=== PATIENT | male | born 1945 | race African-American/Black ===

== ENCOUNTER 2016-04-08 09:36 | Emergency (ER) | payer SELFPAY ==
[~2016-04-08] VITALS: Ht 170.2 cm; Wt 70.3 kg
[~2016-04-08 09:36] MED LIST: ASPIRIN-LOW81 MG PO; CIPRO500 MG PO; HYDROCHLOROTHIA25 MG PO; LISINOPRIL-HCT1 EAC2 PO; LISINOPRIL2.5 MG ORAL; MAGNESIUM CITR296 M1 PO
[2016-04-08 10:00] VITALS: BP 154/85
[2016-04-08] MEDS ORDERED: Lisinopril 10mg tab ORAL ONE (10:15)
--- NOTE | 2016-04-08 10:17 | Emergency Room Report ---
History of Present Illness General Chief Complaint: Chest Pain Source: Patient Present Illness HPI Patient brought in by EMS. Chief complaint of chest discomfort. 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 He has some likely psychiatric disturbances as well. Reports that he rides his bike everywhere, and that while riding his bike he does not have difficulty. Reports one day of chest discomfort possible tightness with productive cough over the last day. Describes chest hurting in all locations without specific radiation. He states that he takes blood pressure medicines but did not take them because he did not go home last night. Denies drug use. Denies history of PE denies history of recent pneumonia or hospitalizations though he does make many references to [facility] which is [place]. Does not know the name of his general Dr. Allergies: Coded Allergies: No Known Allergies (Unverified , 01/24/13) Patient History Past Medical History: see triage record, HTN, CVA/TIA Social History: Reports: alcohol use - uncertain, drug use - uncertain, smoking Immunizations: UTD Reviewed Nursing Documentation: PMH: Agreed Nursing Documentation-PMH Past Medical History: No History, Except For Hx Hypertension: Yes Hx Asthma: Yes Hx Neurological Problems: Yes - psych Hx Cerebrovascular Accident: Yes Review of Systems Respiratory: Reports: cough, sputum Cardiovascular: Reports: chest pain All Other Systems: negative except mentioned in HPI Physical Exam Vital Signs Date Time Temp Pulse Resp B/P Pulse Ox O2 Delivery O2 Flow Rate FiO2 04/08/16 09:36 97.7 80 16 179/92 96 Room Air Sp02 EP Interpretation: reviewed, normal General Appearance: normal inspection, well appearing, no apparent distress, alert Head: atraumatic Eyes: bilateral eye normal inspection ENT: normal ENT inspection, hearing grossly normal, normal voice Neck: normal inspection, full range of motion, supple, no bony tend Respiratory: normal inspection, lungs clear, normal breath sounds, no respiratory distress, no retraction, no wheezing Cardiovascular #1: regular rate, rhythm, no edema Gastrointestinal: normal inspection, normal bowel sounds, non tender, soft, no guarding, no hernia Genitourinary: no CVA tenderness Musculoskeletal: normal inspection, back normal, normal range of motion Neurologic: normal inspection, alert, responsive, speech normal Psychiatric: normal inspection, judgement/insight normal, mood/affect normal Skin: normal inspection, normal color, no rash Medical Decision Making Diagnostic Impression: Primary Impression: Chest pain Additional Impressions: Dyspnea Antisocial behavior Hypertension Cocaine abuse Muscle cramp Muscle cramping ER Course Patient presenting with discomfort in the chest of a spun certain duration. Patient not a very good historian and wants to complaint primarily about political and racial issues more than discuss his medical care. Overall his EKG shows some left axis deviation a right bundle branch pattern but no obvious ST changes. There is occasional PVCs. His lung exam is not very revealing for pneumonia symptoms or wheezing. I think he is somewhat [employer]care this is a poor story and also does have some general illness. Will check blood tests include cardiac markers, chest x-rays, as well as obtain urine urine drug screen and treat his blood pressure with by mouth and IV antihypertensives. Patient did receive nitroglycerin as well as aspirin in route. Patient will be further evaluated with a nebulizer treatment to see if this helps with his chest discomfort. I believe he is somewhat Complicated, witha high the moderate risk patient. at this time will disposition based on further disposition based on initial workup. Patient has been essentially chest pain-free since he presented to the ER, he is fixated on muscle cramps and apparently some political difficulties he's had. Troponin x2 is been negative in the ER, blood pressure has improved blood pressure medicines and he does state that he has muscle cramps in his legs periodically. My direct in to find out how he can followup with primary care he becomes upset. He does have positive cocaine in his urine drug screen, negative alcohol. At this time I W. is having acute coronary syndrome and his blood pressure is best controlled. I am discharging him to followup with primary and to continue state her medications with significant time spent counseling on alcohol and drug abstinence in general. Laboratory Tests Test 04/08/16 10:10 04/08/16 10:50 04/08/16 12:05 White Blood Count 4.3 K/UL (4.8-10.8) L Red Blood Count 4.97 M/UL (4.70-6.10) Hemoglobin 15.5 G/DL (14.2-18.0) Hematocrit 48.3 % (42.0-52.0) Mean Corpuscular Volume 97 FL (80-99) Mean Corpuscular Hemoglobin 31.1 PG (27.0-31.0) H Mean Corpuscular Hemoglobin Concent 32.1 G/DL (32.0-36.0) Red Cell Distribution Width 12.6 % (11.6-14.8) Platelet Count 237 K/UL (150-450) Mean Platelet Volume 9.1 FL (6.5-10.1) Neutrophils (%) (Auto) 55.6 % (45.0-75.0) Lymphocytes (%) (Auto) 33.9 % (20.0-45.0) Monocytes (%) (Auto) 6.0 % (1.0-10.0) Eosinophils (%) (Auto) 2.7 % (0.0-3.0) Basophils (%) (Auto) 1.8 % (0.0-2.0) Prothrombin Time 10.6 SEC (9.30-11.50) Prothromb Time International Ratio 1.0 (0.9-1.1) Activated Partial Thromboplast Time 32 SEC (23-33) Sodium Level 134 mEQ/L (135-145) L Potassium Level 4.0 mEQ/L (3.4-4.9) Chloride Level 92 mEQ/L (98-107) L Carbon Dioxide Level 28 mEQ/L (20-30) Anion Gap 14 (5-15) Blood Urea Nitrogen 10 mg/dL (7-23) Creatinine 0.9 mg/dL (0.7-1.2) Estimat Glomerular Filtration Rate > 60 mL/min (>60) Glucose Level 104 mg/dL (74-106) Calcium Level 9.4 mg/dL (8.6-10.2) Total Bilirubin 0.4 mg/dL (0.0-1.2) Aspartate Amino Transf (AST/SGOT) 101 U/L (5-40) H Alanine Aminotransferase (ALT/SGPT) 105 U/L (3-41) H Alkaline Phosphatase 75 U/L (40-129) Total Creatine Kinase 532 U/L (38-174) H Creatine Kinase MB 22.7 ng/mL (< 6.7) H Creatine Kinase MB Relative Index 4.2 Troponin I < 0.30 ng/mL (<=0.30) < 0.30 ng/mL (<=0.30) Pro-B-Type Natriuretic Peptide 149 pg/mL (0-125) H Total Protein 8.4 g/dL (6.6-8.7) Albumin 4.2 g/dL (3.5-5.2) Globulin 4.2 g/dL Albumin/Globulin Ratio 1.0 (1.0-2.7) Serum Alcohol Pending Urine Opiates Screen Negative (NEGATIVE) Urine Barbiturates Screen Negative (NEGATIVE) Phencyclidine (PCP) Screen Negative (NEGATIVE) Urine Amphetamines Screen Negative (NEGATIVE) Urine Benzodiazepines Screen Negative (NEGATIVE) Urine Cocaine Screen Positive (NEGATIVE) H Urine Marijuana (THC) Screen Negative (NEGATIVE) EKG Diagnostic Results EKG Time: 10:16 EP Interpretation: sinus rhythm, PVCs, LAD, RBBB Rate: normal Rhythm: NSR ST Segments: no acute changes Rhythm Strip Diag. Results Rhythm Strip Time: 10:16 Rate: 82 Rhythm: NSR, no PVC's, no ectopy Chest X-Ray Diagnostic Results Time: 10:16 Reevaluation Time: 13:11 Last Vital Signs Date Time Temp Pulse Resp B/P Pulse Ox O2 Delivery O2 Flow Rate FiO2 04/08/16 09:36 97.7 80 16 179/92 96 Room Air Status: improved Disposition: HOME, SELF-CARE Condition: Stable Mp Dai MD Apr 08, 2016 10:17
[2016-04-08 10:24] LABS: BASOPHILS % (AUTO) 1.8 % (0.0-2.0); EOSINOPHILS % (AUTO) 2.7 % (0.0-3.0); LYMPHOCYTES % (AUTO) 33.9 % (20.0-45.0); MEAN CORPUSCULAR HEMOGLOBIN 31.1 PG (27.0-31.0); MEAN CORPUSCULAR HGB CONC 32.1 G/DL (32.0-36.0); MEAN CORPUSCULAR VOLUME 97 FL (80-99); MEAN PLATELET VOLUME 9.1 FL (6.5-10.1); NEUTROPHILS % (AUTO) 55.6 % (45.0-75.0); PLATELET COUNT 237 K/UL (150-450); RED BLOOD COUNT 4.97 M/UL (4.70-6.10); RED CELL DISTRIBUTION WIDTH 12.6 % (11.6-14.8); WHITE BLOOD COUNT 4.3 K/UL (4.8-10.8)
[2016-04-08 10:29] LABS: PROTHROMBIN TIME 10.6 SEC (9.30-11.50)
[2016-04-08 10:40] LABS: TROPONIN I < 0.30 ng/mL (<=0.30)
[2016-04-08 10:43] LABS: ALANINE AMINOTRANSFERASE 105 U/L (3-41); ASPARTATE AMINO TRANSFERASE 101 U/L (5-40); CALCIUM 9.4 mg/dL (8.6-10.2); CARBON DIOXIDE 28 mEQ/L (20-30); CREATININE 0.9 mg/dL (0.7-1.2); GLOMERULAR FILTRATION RATE > 60 mL/min (>60); TOTAL PROTEIN 8.4 g/dL (6.6-8.7)
[2016-04-08 10:44] LABS: ANION GAP 14 (5-15); CHLORIDE 92 mEQ/L (98-107); HEMOLYSIS 6; SODIUM 134 mEQ/L (135-145)
[2016-04-08] MEDS ORDERED: NS 55 ML IV ONE (10:45)
[2016-04-08] MEDS ORDERED: Solu-MEDROL 125mg Inj IVP ONE (10:45)
[2016-04-08] MEDS ORDERED: cefTRIAXone 1 GM in NS 55 ML IVPB ONE (10:45)
[2016-04-08] MEDS ORDERED: Azithromycin 500 MG in D5W 275 ML IVPB ONE (10:45)
[2016-04-08 10:54] LABS: CKMB 22.7 ng/mL (< 6.7)
[2016-04-08 11:00] VITALS: BP 169/84
[2016-04-08] MEDS ORDERED: Azithromycin Inj IV ONE (11:21)
--- NOTE | 2016-04-08 11:46 | Diagnostic Imaging Report ---
Indication: Shortness of breath Technique: XRAY CHEST 1 V Comparison: 12/03/09 Findings: Cardiac silhouette appears prominent. There is elevation of the left hemidiaphragm. Slight linear and hazy opacities are noted in the lung bases. There is no pneumothorax. Degenerative changes of the spine are seen. Impression: Elevation of the left hemidiaphragm with slight hazy appearance in the lung bases which could represent atelectasis. Infiltrate not excluded and clinical correlation/followup recommended.
[2016-04-08 12:00] VITALS: BP 138/74
[2016-04-08] MEDS ORDERED: Acetaminophen 500mg (ES) tab ORAL ONE (12:45)
[2016-04-08 12:54] LABS: TROPONIN I < 0.30 ng/mL (<=0.30)
[2016-04-08 13:00] VITALS: BP 125/59
[2016-04-08 14:00] VITALS: BP 125/59
[2016-04-08 14:03] VITALS: BP 125/59
--- NOTE | 2016-04-09 18:58 | Cardiology Report ---
APPROVED REPORT EKG Measurement Heart [id number] Sinus rhythm with occasional premature ventricular complexes Left axis deviation Right bundle branch block and LAFB Abnormal ECG
== END 2016-04-08 14:03 | disposition home or self-care (01) ==
LOC: EDBD 09:36 → EMR 10:00
DX: R07.89 Other chest pain (principal); R06.00 Dyspnea, unspecified; I10 Essential (primary) hypertension; F14.10 Cocaine abuse, uncomplicated; Z72.811 Adult antisocial behavior; R25.2 Cramp and spasm; J45.909 Unspecified asthma, uncomplicated; Z86.73 Personal history of transient ischemic attack (TIA), and cerebral infarction without residual deficits
CPT/HCPCS: 36415; 71010; 80053; 80300; 82550; 82553; 83880; 84484; 85025; 85610; 85730; 93005; 96361; 96374; 96375; 99284; G0480; J0360; J0456; J0696; J2930; 80329

== ENCOUNTER 2018-08-26 08:02 | Emergency (ER) | payer MEDICARE, OTHER ==
[~2018-08-26] VITALS: Ht 172.7 cm; Wt 72.6 kg
--- NOTE | 2018-08-26 08:10 | NUR ---
ED Nurse Note: pt brought in to ER by ambulance from [facility] due to abnormal lab. pt is non verbal with trache but follows commnads. pt is bedbound. based on the lab that SNF sent, hg level was 7.9. pt is in gown and quality assurance monitor body. pt is on O2 2L/min via trache. Rt buttock pressure ulcer noted.
--- NOTE | 2018-08-26 08:11 | NUR ---
ED Nurse Note: body contracture noted on Lt side of body. pt unable to straight Lt arm and Lt leg.
--- NOTE | 2018-08-26 08:12 | NUR ---
ED Nurse Note: pt has G-tube in place on medial abdomen.
--- NOTE | 2018-08-26 08:32 | Emergency Room Report ---
History of Present Illness General Chief Complaint: Abnormal Labs Source: Patient Present Illness HPI 72-year-old male presents ED for evaluation. Brought in by EMS from [facility] facility. Noted to have abnormal labs. Recent lab work shows hemoglobin of 7.9. Patient is nonverbal, trach with trach collar. History of CVA. Patient shows no signs of distress upon arrival. No reported nausea or vomiting. No reported blood in stool. No other aggravating or relieving factors. No other associated symptoms Allergies: Coded Allergies: No Known Allergies (Unverified , 01/24/13) Patient History Past Medical History: HTN, asthma, CVA/TIA, psych hx Past Surgical History: none Pertinent Family History: none Social History: Denies: smoking, alcohol use, drug use Immunizations: UTD Reviewed Nursing Documentation: PMH: Agreed; PSxH: Agreed Nursing Documentation-PMH Past Medical History: No History, Except For Hx Hypertension: Yes Hx Asthma: Yes Hx Neurological Problems: Yes - psych Hx Cerebrovascular Accident: Yes Review of Systems All Other Systems: limited Physical Exam Vital Signs Date Time Temp Pulse Resp B/P (MAP) Pulse Ox O2 Delivery O2 Flow Rate FiO2 08/26/18 08:05 98.6 71 21 110/64 (79) 100 Trach Collar 4.0 Sp02 EP Interpretation: reviewed, normal General Appearance: no apparent distress, alert, thin, other - nonverbal Head: normocephalic Eyes: bilateral eye normal inspection, bilateral eye PERRL ENT: normal ENT inspection Neck: tracheotomy Respiratory: chest non-tender, lungs clear, normal breath sounds, speaking full sentences Cardiovascular #1: regular rate, rhythm, no edema Gastrointestinal: normal inspection, other - Gtube Rectal: deferred Genitourinary: no CVA tenderness Musculoskeletal: normal inspection Neurologic: other - nonverbal Psychiatric: other - nonverbal Skin: normal inspection Lymphatic: normal inspection Medical Decision Making Diagnostic Impression: Primary Impression: Abnormal laboratory test result ER Course Hospital Course 72-year-old male presents to ED for evaluation of possible anemia, with possible transfusion Differential diagnoses include: anemia requiring transfusion, microcytic anemia , macrocytic anemia, heavy blood loss Clinical course Patient placed on stretcher. After initial history and physical I ordered labs including CBC and type and screen. Labs-hemoglobin 9.4, no leukocytosis, UA negative. no other electrolyte abnormalities. Family requested CT head CT shows old chronic infarcts, old subdural. Nothing acute Discussed with Dr Giang (covering for Dr Canas); the patient can be safely discharged back to [facility] facility Diagnosis - abnormal lab result Stable and discharged to SNF. Followup with PMD. Return to ED if symptoms recur or worsen Labs Test 08/26/18 08:15 08/26/18 08:30 White Blood Count 9.7 K/UL (4.8-10.8) Red Blood Count 3.15 M/UL (4.70-6.10) Hemoglobin 9.4 G/DL (14.2-18.0) Hematocrit 28.7 % (42.0-52.0) Mean Corpuscular Volume 91 FL (80-99) Mean Corpuscular Hemoglobin 29.9 PG (27.0-31.0) Mean Corpuscular Hemoglobin Concent 32.8 G/DL (32.0-36.0) Red Cell Distribution Width 13.2 % (11.6-14.8) Platelet Count 374 K/UL (150-450) Mean Platelet Volume 7.0 FL (6.5-10.1) Neutrophils (%) (Auto) 70.5 % (45.0-75.0) Lymphocytes (%) (Auto) 12.7 % (20.0-45.0) Monocytes (%) (Auto) 8.9 % (1.0-10.0) Eosinophils (%) (Auto) 7.0 % (0.0-3.0) Basophils (%) (Auto) 0.9 % (0.0-2.0) Prothrombin Time 10.6 SEC (9.30-11.50) Prothromb Time International Ratio 1.0 (0.9-1.1) Activated Partial Thromboplast Time 29 SEC (23-33) Sodium Level 131 MMOL/L (136-145) Potassium Level 3.5 MMOL/L (3.5-5.1) Chloride Level 94 MMOL/L (98-107) Carbon Dioxide Level 34 MMOL/L (21-32) Anion Gap 3 mmol/L (5-15) Blood Urea Nitrogen 13 mg/dL (7-18) Creatinine 0.5 MG/DL (0.55-1.30) Estimat Glomerular Filtration Rate > 60 mL/min (>60) Glucose Level 138 MG/DL (74-106) Lactic Acid Level 1.10 mmol/L (0.4-2.0) Calcium Level 9.1 MG/DL (8.5-10.1) Total Bilirubin 0.3 MG/DL (0.2-1.0) Aspartate Amino Transf (AST/SGOT) 37 U/L (15-37) Alanine Aminotransferase (ALT/SGPT) 60 U/L (12-78) Alkaline Phosphatase 119 U/L (46-116) Pro-B-Type Natriuretic Peptide 715 pg/mL (0-125) Total Protein 7.4 G/DL (6.4-8.2) Albumin 2.7 G/DL (3.4-5.0) Globulin 4.7 g/dL Albumin/Globulin Ratio 0.6 (1.0-2.7) Urine Color Yellow Urine Appearance Clear Urine pH 8 (4.5-8.0) Urine Specific [place] 1.015 (1.005-1.035) Urine Protein Negative (NEGATIVE) Urine Glucose (UA) Negative (NEGATIVE) Urine Ketones Negative (NEGATIVE) Urine Blood Negative (NEGATIVE) Urine Nitrite Negative (NEGATIVE) Urine Bilirubin Negative (NEGATIVE) Urine Urobilinogen 1 MG/DL (0.0-1.0) Urine Leukocyte Esterase Negative (NEGATIVE) EKG Diagnostic Results Rate: normal Rhythm: NSR ST Segments: no acute changes ASA given to the pt in ED: No Rhythm Strip Diag. Results EP Interpretation: yes Rhythm: NSR, no PVC's, no ectopy CT/MRI/US Diagnostic Results CT/MRI/US Diagnostic Results : Imaging Test Ordered: CT Head Impression old subdural. chronic infarcts Last Vital Signs Date Time Temp Pulse Resp B/P (MAP) Pulse Ox O2 Delivery O2 Flow Rate FiO2 08/26/18 08:05 98.6 71 21 110/64 (79) 100 Trach Collar 4.0 Status: improved Disposition: XF SNF Condition: Stable Narciso Barber MD Aug 26, 2018 08:32
[2018-08-26 08:33] LABS: BASOPHILS % (AUTO) 0.9 % (0.0-2.0); HEMATOCRIT 28.7 % (42.0-52.0); HEMOGLOBIN 9.4 G/DL (14.2-18.0); LYMPHOCYTES % (AUTO) 12.7 % (20.0-45.0); MEAN CORPUSCULAR VOLUME 91 FL (80-99); MONOCYTES % (AUTO) 8.9 % (1.0-10.0); NEUTROPHILS % (AUTO) 70.5 % (45.0-75.0); PLATELET COUNT 374 K/UL (150-450); RED BLOOD COUNT 3.15 M/UL (4.70-6.10); RED CELL DISTRIBUTION WIDTH 13.2 % (11.6-14.8); WHITE BLOOD COUNT 9.7 K/UL (4.8-10.8)
[2018-08-26 08:42] VITALS: BP 128/68
[2018-08-26 08:43] LABS: APPEARANCE,URINE CLEAR; BILIRUBIN, URINE NEGATIVE (NEGATIVE); GLUCOSE, URINE (UA) NEGATIVE (NEGATIVE); KETONES,URINE NEGATIVE (NEGATIVE); LEUKOCYTE ESTERASE ,URINE NEGATIVE (NEGATIVE); NITRITE,URINE NEGATIVE (NEGATIVE); PH,URINE 8 (4.5-8.0); PROTEIN,URINE NEGATIVE (NEGATIVE); UROBILINOGEN,URINE 1 MG/DL (0.0-1.0)
[2018-08-26 08:45] LABS: ANION GAP 3 mmol/L (5-15); BLOOD UREA NITROGEN 13 mg/dL (7-18); CALCIUM 9.1 MG/DL (8.5-10.1); CARBON DIOXIDE 34 MMOL/L (21-32); CHLORIDE 94 MMOL/L (98-107); CREATININE 0.5 MG/DL (0.55-1.30); POTASSIUM 3.5 MMOL/L (3.5-5.1); SODIUM 131 MMOL/L (136-145)
[2018-08-26 08:46] LABS: COLOR,URINE YELLOW
[2018-08-26 08:53] LABS: ALANINE AMINOTRANSFERASE 60 U/L (12-78); ALBUMIN 2.7 G/DL (3.4-5.0); ALBUMIN/GLOBULIN RATIO 0.6 (1.0-2.7); ALKALINE PHOSPHATASE 119 U/L (46-116); ASPARTATE AMINO TRANSFERASE 37 U/L (15-37); BILIRUBIN,TOTAL 0.3 MG/DL (0.2-1.0)
--- NOTE | 2018-08-26 08:56 | NUR ---
ED Nurse Note: trache suctioned. yellow with red thick clot was suctioned. pt tolerated well.
--- NOTE | 2018-08-26 09:41 | NUR ---
ED Nurse Note: pt went down for CT scan in stable condition.
--- NOTE | 2018-08-26 09:48 | NUR ---
ED Nurse Note: pt came back from CT scan in stable condition.
--- NOTE | 2018-08-26 10:09 | Diagnostic Imaging Report ---
Indication: Altered mental status Technique: Contiguous 5 mm thick transaxial imaging of the head obtained in a Siemens Sensation [address] scanner. Soft tissue and bone windows generated. Automatic Exposure Control was utilized. Total Dose length Product (DLP): 1418.[address] Dose Index Volume (CTDIvol): 70.38 mGy Comparison: none Findings: Patchy areas of encephalomalacia are noted within the right frontal lobe in 2 locations as well as the left parietal lobe consistent with old infarct. Right frontal low-density subdural collection demonstrated probably an old subdural hematoma or CSF hygroma. There is no mass effect or edema or evidence of acute hemorrhage. There is evidence of a skull fracture the acuity of which is not certain on this study. The fracture is oriented transversely over the vertex of the skull distinct and posterior to the coronal suture. There is also some comminution and irregularity along the right parietal calvarium posterior to the main fracture line. There is no soft tissue swelling. Based on the appearance this is probably an old injury. Please correlate clinically. There is moderate prominence of the ventricles, basal cisterns, and cerebral sulci consistent with atrophy. Extensive white matter hypoattenuation is noted throughout the brain consistent with chronic small vessel disease. IMPRESSION: No definite evidence of acute intracranial bleed, mass effect or edema. Multiple old infarcts as described above. Suggestion of a old right frontal subdural hematoma. Nondisplaced transversely oriented skull fracture involving the parietal bone probably old. Correlate clinically. No associated scalp hematoma or contusion. Moderate atrophy of the brain. Extensive chronic small vessel ischemic changes involving white matter tracts. The CT scanner at [facility] is accredited by the [place] [employer] and the scans are performed using dose optimization techniques as appropriate to a performed exam including Automatic Exposure control.
--- NOTE | 2018-08-26 10:23 | NUR ---
ED Nurse Note: Lab in normal range and CT scan result came back negative. pt is going back to facility. report given to Dayami at the facility. transportation ETA 1100.
--- NOTE | 2018-08-26 11:27 | Diagnostic Imaging Report ---
Indication: Dyspnea Comparison: 04/08/2016 A single view chest radiograph was obtained. Findings: Mild pulmonary vascular congestion suspected with cardiomegaly. Tracheostomy noted. Bones are osteopenic. IMPRESSION: Mild pulmonary vascular congestion suspected
--- NOTE | 2018-08-26 11:44 | NUR ---
ED Nurse Note: EMS recieved report and pt left in stable condition.
[2018-08-26 11:45] VITALS: BP 148/75
--- NOTE | 2018-08-27 15:35 | Cardiology Report ---
APPROVED REPORT EKG Measurement Heart [id number] Normal sinus rhythm with sinus arrhythmia Right bundle branch block Septal infarct, age undetermined Abnormal ECG
== END 2018-08-26 11:46 ==
LOC: EDBD 08:02 → EDUNIT# 08:02 → EDBEDREQSVC 08:25 → EMR 08:39 → CANBEDREQ 09:18 → EMR 11:46
DX: R79.9 Abnormal finding of blood chemistry, unspecified (principal); I10 Essential (primary) hypertension; Z86.73 Personal history of transient ischemic attack (TIA), and cerebral infarction without residual deficits
CPT/HCPCS: 36415; 70450; 71045; 80053; 81003; 83605; 83880; 85025; 85610; 85730; 86850; 86900; 86901; 87040; 87081; 93005; 96360; 99284